=== PATIENT | male | born 1975 | race Hispanic/Latino ===

== ENCOUNTER 2025-05-27 06:03 | Emergency (ER) | payer OTHER ==
[2025-05-27] MEDS ORDERED: Lidocaine 1% w/Epinephrine 1:100K 20 ML VIAL ONE (06:53)
[2025-05-27] MEDS ORDERED: Boostrix 0.5 ML (Tdap) VIAL (>/=7 yrs of age) ONE (06:54)
[2025-05-27] MEDS ORDERED: Triple Antibiotic Oint 1 GM Packet ONE (07:24)
== END 2025-05-27 07:49 | disposition home or self-care (01) ==
LOC: BURERS 06:03
DX: S01.01XA Laceration without foreign body of scalp, initial encounter (principal); F17.290 Nicotine dependence, other tobacco product, uncomplicated; Z23 Encounter for immunization; W17.89XA Other fall from one level to another, initial encounter
CPT/HCPCS: 12002; 70450; 90471; 90715